=== PATIENT | female | born 1930 | race Caucasian/White ===

== ENCOUNTER 2017-05-02 11:21 | Inpatient (IN) | payer MEDICARE, OTHER ==
[2017-05-02] VITALS (7 sets, daily range): BP systolic 132–186; BP diastolic 49–76; PULSE 62–71; RESP 12–18; O2SAT 93–100
[~2017-05-02] VITALS: Ht 157.5 cm; Wt 62.2 kg
[~2017-05-02 11:21] MED LIST: ATEN25TA PO; ATOR20TA PO; FAMO20T PO; FLUO10TA PO; LEVO25TA5 PO; LORA0.5T PO; LOSA50TA37 PO; WARF2.5T82 PO; WARF5TAB PO
--- NOTE | 2017-05-02 11:42 | ED.REPORT ---
HPI-Extremity Problem Upper Date of Service May 02, 2017 ED Provider: Duke Sheldon MD 86 y/o female with a hx of CVA (2 years ago), HTN , paroxysmal A-fib (on Coumadin) and skin cancer presents to the ED complaining of left wrist pain and swelling, onset yesterday morning. The pt's states he found her yesterday morning leaning over the bed with her feet on the ground. He helped her to the dining table but she kept leaning to the left when in the chair. They also could not understand what she was trying to say. Today, the pt is not leaning one way but is experiencing generalized weakness. Therefore, still needs help standing up. Her speech has also reportedly improved. The pt states ""I don't think I get anything" when asked about her main complaint today. Her family states they came in today to address both her sx yesterday and the severe pain, swelling and erythema in the left wrist due to unknown cause. She denies change in appetite, myalgia, recent antibiotic use or taking a pain medication. The pt had a fall a couple of weeks ago but did not hurt her wrist then. Nursing Notes Stated Complaint: X-RAY Chief Complaint: Extremity Trauma Nursing Notes Reviewed: Yes (Impactia not reconciled) Allergies: Coded Allergies: codeine (Verified Allergy, Mild, nausea, 05/02/17) Scheduled Atenolol (Atenolol) 25 Mg Tablet 25 MG PO BID Atorvastatin (Lipitor) 20 Mg Tablet 20 MG PO HS Famotidine (Pepcid) 20 Mg Tablet 20 MG PO DAILY Fluoxetine (Fluoxetine) 10 Mg Tablet 10 MG PO DAILY Levothyroxine (Levothyroxine) 25 Mcg Tablet 25 MCG PO DAILY Losartan Potassium (Losartan Potassium) 50 Mg Tablet 50 MG PO BID Warfarin Sodium (Coumadin) 5 Mg Tablet 5 MG PO sat,sat,,sun Warfarin Sodium (Warfarin Sodium) 2.5 Mg Tablet 2.5 MG PO sat,,sat Scheduled PRN Lorazepam (Lorazepam) 0.5 Mg Tablet 0.5-1 MG PO HS PRN PRN For Anxiety or Agitation General Time Seen by MD: 11:41 Chief Complaint Wrist injury left Hx Obtained From: Patient, Spouse Arrived By: Walk-in Onset Occurred: Yesterday Symptom Duration: 1 day Location: : Arm left: Wrist left Quality: Painful Severity: Current: Severe Severity: Maximum: Severe Recent Healthcare: Recent doctor visit Similar Sx Previous: No Past Medical History Past Medical History 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 Recent small/mod pericardial effusion without evidence of tamponade Paroxysmal afib on coumadin back pain arthritis Mild cognitive impairment Reports: Hyperlipidemia, Hypertension Past Surgical History knee replacement back surgery Reports: Appendectomy, Hysterectomy Reports: Pacemaker insertion Smoking History Never Smoker Social History Alcohol Use: Denies alcohol use Drug Use: Denies drug use Other Social History: Ambulatory Status Independent Review of Systems Reports: Left wrist erythema Denies: change in appetite Musculoskeletal: Reports: Extremity pain (left arm), Joint pain (left wrist pain), Joint swelling (left wrist), Denies: Myalgia Neurologic: Reports: Focal weakness (left sided (now resolved)), Slurred speech (now resolved), Weakness Complete sys rev & neg: except as marked. Physical Exam Initial Vital Signs Vital Signs (First) Date Time Temp Pulse Resp B/P Pulse Ox O2 Delivery O2 Flow Rate FiO2 05/02/17 11:35 37.1 69 14 157/49 97 Room Air Initial VS: Reviewed Head / Eyes: Atraumatic, Normocephalic Neck: Supple, Non-tender, Full range of motion Lower Extremities: Vascular intact, Neuro intact, No swelling, No tenderness Skin: Warm, Dry, No cyanosis Neurologic: Alert, Oriented, Nonfocal General/Constitutional: Awake, Alert, No acute distress, Cooperative Pleasantly demented Respiratory / Chest: Atraumatic, Breath sounds NL, Breath sounds = bilat, No respiratory distress, No rales, No rhonchi, No wheezing, No retractions Cardiovascular: Heart rate NL, Regular rhythm, Heart sounds NL, No gallop, No murmurs, No rubs Upper Extremity / MS: Atraumatic, No swelling, No deformity, Neurologic intact , Vascular intact Wrist / Hand: Atraumatic, No deformity, Neurologic intact, Vascular intact No visible sign of trauma to left wrist but tender throughout. Decreased range of motion of left wrist and elbow. Skin: Atraumatic, Warm, Dry, Intact 15cm Clinical cellulitis of dorsum of laft hand and left forearm. No open wounds. Abdomen: Atraumatic, Soft, Non-tender Interpretation & Diagnostics Lab Results Interpretation Result Diagram: 05/02/17 1250 05/02/17 1250 Test 05/02/17 12:50 White Blood Count 12.1th/mm3 (3.8-10.1) Red Blood Count 5.10mil/mm3 (3.90-5.20) Hemoglobin 13.4g/dL (12.0-15.6) Hematocrit 42.0% (35.0-46.0) Mean Corpuscular Volume 82.4fL (81-100) Mean Corpuscular Hemoglobin 26.3pg (27.0-35.0) Mean Corpuscular Hemoglobin Concent 31.9% (32.0-37.0) Red Cell Distribution Width 16.0% (12.3-15.4) Platelet Count 345bil/L (150-400) Neutrophils (%) (Auto) 79.9% (40-74) Lymphocytes (%) (Auto) 6.7% (14-46) Monocytes (%) (Auto) 11.2% (4-12) Eosinophils (%) (Auto) 1.4% (0-5) Basophils (%) (Auto) 0.6% (0-3) Prothrombin Time 19.8sec (8.1-12.5) Prothromb Time International Ratio 1.83ratio Sodium Level 135mEq/L (134-144) Potassium Level 3.6mEq/L (3.5-5.2) Chloride Level 97mEq/L (97-108) Carbon Dioxide Level 24mmol/L (18-29) Blood Urea Nitrogen 17mg/dL (8-27) Creatinine 0.82mg/dL (0.57-1.00) Estimat Glomerular Filtration Rate 94mL/min (>59) Glucose Level 153mg/dL (60-99) Lactic Acid Level 2.1mmol/L (0.4-2.0) Calcium Level 10.9mg/dL (8.5-10.1) Total Bilirubin 0.7mg/dL (0.0-1.2) Aspartate Amino Transf (AST/SGOT) 17U/L (0-50) Alanine Aminotransferase (ALT/SGPT) 14U/L (0-32) Alkaline Phosphatase 85U/L (25-165) Total Protein 8.1g/dL (6.4-8.4) Albumin 4.0g/dL (3.4-5.0) Lab Results Interpretation: CBC positive leukocytosis CMP normal Lactic acid marginally elevated Blood cultures pending INR marginally subtherapeutic ECG Interpretation ECG Interpretation: Normal sinus rthyhm. Q waves inferiorly T wave non-specifc abdnormal inferiorly No interval changes compared with March 2015 Time: 12:19 Interpreted by: ED physician X-Ray Chest Interpretation Chest Xray Interpretation: IMPRESSION: No acute cardiopulmonary disease. Dictated by: Vj Eaton M.D. on 05/02/2017 at 12:08 Approved by: Vj Eaton M.D. on 05/02/2017 at 12:09 View: Portable, 1 view Interpretation / Wet Read by: Interpret - Radiologist X-Ray Interpretation Xray Interpretation: IMPRESSION: 1. No acute bony injuries of the left wrist. 2. Triangular fibrocartilage region chondrocalcinosis, consistent with CPPD deposition disease. 3. Mild first carpal metacarpal joint degeneration. Dictated by: Vj Eaton M.D. on 05/02/2017 at 12:03 Approved by: Vj Eaton M.D. on 05/02/2017 at 12:05 X-Ray Ordered: Wrist left Interpretation / Wet Read by: Interpret - Radiologist Xray Interpretation: IMPRESSION: 1. No acute bony injuries of the left elbow. 2. Scattered soft tissue calcification around the left elbow, possibly dystrophic from remote traumatic insult. Dictated by: Vj Eaton M.D. on 05/02/2017 at 12:06 Approved by: Vj Eaton M.D. on 05/02/2017 at 12:07 X-Ray Ordered: Elbow left CT Head Interpretation IMPRESSION: 1. No acute intracranial process. 2. Moderate to severe atrophy and chronic microvascular ischemic changes. Dictated by: Kay Velez M.D. on 05/02/2017 at 13:22 Approved by: Kay Velez M.D. on 05/02/2017 at 13:23 Study: Head CT no contrast Interpretation / Wet Read by: Interpret - Radiologist Re-Eval/Medical Decision Med Decision/Clinical Course This is an 86-year-old female with chronic severe dementia who is brought in with increasing redness swelling and pain in the dorsum of the left hand extending up the forearm that started yesterday. Additionally there is concern that the patient suffered a recent TIA/CVA as yesterday she had some expressive aphasia, and leaning to the left, and could not stand or dress herself which is unusual. Today she is also having weakness unable to stand or dresser self according the family, required assistance, was having no left-hand pain so was brought in. There is no known history of trauma except for fall a week ago with no known hand trauma. All history is obtained to use the family as the patient is severely demented and according them is back to baseline, except for this global weakness of the inability to stand. The patient does have some speech deficits that are mild, the family thinks her back at baseline. No overt focal motor weakness is identified on NIH stroke scale testing. The patient does have what appears to be marked cellulitis of the left hand and forearm. I do not appreciate clear signs of trauma. Accu-Chek was normal. Head CT was negative for clear acute pathology. EKG demonstrates currently sinus rhythm. Radiographs of the wrist and elbow were negative although clinically I am skeptical as as no signs of trauma, no signs of a septic joint. Patient's lab work is notable for leukocytosis, marginally elevated lactic acid. I think parenteral antibiotics are warranted it given this severity of the cellulitis, and started patient on Zosyn and vancomycin. A speech evaluation was performed. Given her age, leukocytosis, sizable cellulitis, recent stroke with difficulty ambulating that is new, the plan is admission. Family is planning to try and stay at bedside 24 hours to the patient's severity and try to help stabilize to manage her her dementia. Source of Hx: Old records Differential Diagnosis: Positive: Cellulitis, Negative: Deep vein thrombosis, Fracture, Hematoma, Humerus fracture, Joint effusion, Laceration, Metacarpal fracture, Open fracture, Partial amputation Counseled Regarding: Diagnosis, Lab results, Need for follow-up, When/why to return to ED NIH Stroke Scale Level of Consciousness: Alert and responsive (0) Ask Month & Age: 0 questions right (2) (family states it is baseline) Open/Close Eyes/Hand [employer] Press Operator: Performs both tasks (0) Horizontal EO Movements: None (0) Visual Maddox: No visual loss (0) Facial Palsy: Normal symmetry (0) Right Arm Motor Drift (10s): No drift 10 sec (0) Left Arm Motor Drift (10s): No drift 10 sec (0) (some weaknes, without drift. Acuity is unclear) Right Leg Motor Drift (5s): No drift 5 sec (0) Left Leg Motor Drift (5s): No drift 5 sec (0) Limb Ataxia FNF/Heel-Stevens: No ataxia (0) Sensation (Arms/Legs/Face): No sensory loss (0) Language Aphasia: Loss fluency ID matls (1) Dysarthria: Slurring intelligible (1) Extinction/Inattention: No exctinct/inattent (0) NIHSS Score: 2 Time NIHSS Performed: 11:50 Date NIHSS Performed: May 02, 2017 Discharge & Departure Impression: Primary Impression: Cellulitis Site of cellulitis: extremity Site of cellulitis of extremity: upper extremity Laterality: left Qualified Code: L03.114 - Cellulitis of left upper limb Additional Impressions: CVA (cerebral infarction) Subtherapeutic international normalized ratio (INR) Disposition: Home Discharge Condition All VS Reviewed: Yes Condition: Stable Referrals: Lianne Espinoza MD (PCP) Scribe Attestation Portions of this note were transcribed by Martha Harrell. I, , personally performed the history, physical exam and medical decision- making;I reviewed and confirmed the accuracy of the information in the transcribed note. Signed by Stuart Lyn. 05/02/17 13:28 copies to: Lianne Espinoza MD, Matthew F MD May 02, 2017 11:42 Martha Harrell May 02, 2017 11:59
[2017-05-02] MEDS ORDERED: Vancomycin Dose per Pharmacist XX ONE (12:05)
[2017-05-02] MEDS ORDERED: Piperacillin-Tazo 3.375 Gm Inj 3.375 GM in Dextrose 5% Minibag Plus 50 ML IV ONE (12:05)
[2017-05-02] MEDS ORDERED: Vancomycin Inj 1,000 MG in IV Premix 1 EACH IV ONE (12:35)
--- NOTE | 2017-05-02 12:39 | NUR ---
Evaluation completed. Please go to "Notes" then click on "Assessments and Notes" (bottom left corner of screen). Then select appropriate discipline tab on top of screen.
[2017-05-02 12:59] LABS: BASOPHILS % (AUTO) 0.6 % (0-3); EOSINOPHILS % (AUTO) 1.4 % (0-5); MONOCYTES % (AUTO) 11.2 % (4-12); Mean Corpuscular Hemoglobin 26.3 pg (27.0-35.0); Mean Corpuscular Volume 82.4 fL (81-100); NEUTROPHILS % (AUTO) 79.9 % (40-74); Platelet Count 345 bil/L (150-400)
--- NOTE | 2017-05-02 13:06 | DRSVH ---
PROCEDURE: X-RAY LEFT WRIST COMPLETE, MINIMUM THREE VIEWS ([id number]) INDICATIONS: 86 year-old female with left wrist redness and swelling. TECHNIQUE: 4 views of the wrist were acquired. COMPARISON: None. FINDINGS: Bones: No fractures or dislocations. There is mild first carpometacarpal joint degeneration. No waqar picious bony lesions. Scaphoid view: Scaphoid is intact. Soft tissues: There is extensive triangular fibrocartilage region chondrocalcinosis. IMPRESSION: 1. No acute bony injuries of the left wrist. 2. Triangular fibrocartilage region chondrocalcinosis, consistent with CPPD deposition disease. 3. Mild first carpal metacarpal joint degeneration. Dictated by: Vj Eaton M.D. on 05/02/2017 at 12:03 Approved by: Vj Eaton M.D. on 05/02/2017 at 12:05
--- NOTE | 2017-05-02 13:09 | DRSVH ---
PROCEDURE: X-RAY LEFT ELBOW, TWO VIEWS ([id number]) INDICATIONS: 86 year-old female with left elbow pain, without known injury. TECHNIQUE: 2 views of the elbow were acquired. COMPARISON: None. FINDINGS: Bones: No fractures or dislocations. No suspicious bony lesions. Soft tissues: No elbow joint effusion. There is soft tissue calcification projecting just anterior t o the proximal radius, as well as at the common extensor tendon origin. IMPRESSION: 1. No acute bony injuries of the left elbow. 2. Scattered soft tissue calcification around the left elbow, possibly dystrophic from remote traumat ic insult. Dictated by: Vj Eaton M.D. on 05/02/2017 at 12:06 Approved by: Vj Eaton M.D. on 05/02/2017 at 12:07
--- NOTE | 2017-05-02 13:11 | DRSVH ---
PROCEDURE: X-RAY CHEST ONE VIEW, PORTABLE ([id number]) INDICATIONS: 86 year-old female with possible stroke. TECHNIQUE: One view of the chest was acquired. COMPARISON: [facility], CR, XR CHEST 2VW, 05/28/2016, 10:55. [facility], C R, XR CHEST 2VW, 12/19/2015, 14:31. [facility], CR, CHEST 2VW, 03/25/2015, 12:21. FINDINGS: Surgical changes and devices: Left chest wall dual chamber pacemaker is again noted. Lungs and pleura: No pleural effusions or pneumothorax. Lungs are clear. Mediastinum: Mediastinal contours appear normal. Heart size is normal. There is aortic atheroscler osis. Bones and chest wall: No suspicious bony lesions. Overlying soft tissues appear unremarkable. IMPRESSION: No acute cardiopulmonary disease. Dictated by: Vj Eaton M.D. on 05/02/2017 at 12:08 Approved by: Vj Eaton M.D. on 05/02/2017 at 12:09
[2017-05-02 13:14] LABS: INR 1.83 ratio
--- NOTE | 2017-05-02 13:25 | DRSVH ---
PROCEDURE: CT BRAIN WITHOUT CONTRAST ([id number]) INDICATIONS: L weakness, on coumadin TECHNIQUE: Noncontrast 4.5 mm thick angled axial sections acquired from the foramen magnum to the vertex, with c oronal reformats. COMPARISON: [facility], CT, CT BRAIN WO CON, 03/03/2016, 8:55. FINDINGS: Image quality: Excellent. CSF spaces: Basal cisterns are patent. No extra-axial fluid collections. The ventricles are symmet varun in size and shape. Brain: No intracranial bleeds. There is cerebral volume loss for age, with resultant ventricular an d sulcal prominence. There are periventricular and deep white matter chronic small vessel ischemic c hanges. There is intracranial internal carotid artery atherosclerosis. There is an unchanged left f rontal extra-axial calcified mass most suggestive of meningioma. Skull and face: Calvarium and visualized facial bones appear intact, without suspicious lesions. Sinuses: Visualized sinuses and mastoids are clear. IMPRESSION: 1. No acute intracranial process. 2. Moderate to severe atrophy and chronic microvascular ischemic changes. Dictated by: Kay Velez M.D. on 05/02/2017 at 13:22 Approved by: Kay Velez M.D. on 05/02/2017 at 13:23
[2017-05-02 14:28] LABS: APPEARANCE,URINE HAZY (CLEAR,HAZY); COLOR,URINE YELLOW (YELLOW)
[2017-05-02 14:29] LABS: OCCULT BLOOD,URINE MODERATE (NEGATIVE); UROBILINOGEN,URINE NORMAL (NORMAL)
--- NOTE | 2017-05-02 17:50 | NUR ---
Admit [facility] rm [id number] from ED Alert, yet confused pt arrived [facility] at 1510. Pt denied having pain, yet winced when L hand was touched. Area over L wrist/hand noted to be reddened, boundaries outlined in ED. Daughters at bedside state the redness has improved since this AM. L arm remains elevated on a pillow, pt states it's more comfortable. Family states pt was dx with dementia 1.5 years ago and noted to have worsening short term memory has been independent at home until yesterday when she fell and needed help up. Pt was receiving IV Vanco but this RN stopped infusion at 1530 d/t the local area getting more red. Discoloration has completely resolved since. Pt oriented to room and facility. Denies having questions. Pt placed on tele, A/V paced 74. Daughters state pt lives at home with . Will continue to monitor.
[2017-05-02] MEDS ORDERED: Alum-Mag Hydrox-Simeth 30 mL Suspension PO PRN (18:15)
[2017-05-02] MEDS ORDERED: Polyethylene Glycol (PEG) 17 Gm Powder PO PRN (18:15)
[2017-05-02] MEDS ORDERED: Ondansetron 2 mg/mL 2 mL Inj IVPUSH PRN (18:15)
[2017-05-02] MEDS ORDERED: 0.9% Sodium Chloride 1,000 ML IV ONE (18:30)
--- NOTE | 2017-05-02 18:31 | PCM.HPMED ---
Subjective Date of Service May 02, 2017 Primary Provider: Admitting Physician: Jonathan Colin Primary Care Physician: Lianne Espinoza MD Attending Physician: Jonathan Colin Chief Complaint: left hand and wrist pain/swelling History of Present Illness: 86 year-old female with history of advanced dementia since CVA episode in 2014, hypertension, paroxysmal A-fib (on Coumadin) presents with complaint of left wrist and left hand pain and swelling, onset yesterday morning. Patient has advanced demential and unable to provide any meaningful history. According to her daughter and grand-daughter who are at bedside yesterday patient was noted to be leaning to the left when trying to walk or when in the chair. She may also have had some transient slurring of her speech yesterday. Today, the pt is not leaning one way and her speech has also reportedly improved. The family brought her in today to address both her symptoms yesterday and the severe pain , swelling and erythema in the left wrist due to unknown cause. Patient does report some pain in her left wrist but otherwise denies any other issues/complaints. There is no reported fever, chills, nausea, vomiting. In the ED she received a dose of Zosyn. Vanco was also ordered but she was noted to have significant erythema at the IV site when Vanco was being infused and so it has been stopped. Review of Systems: Constitutional: Negative, except as otherwise mentioned in the history above. Ophthalmologic: Negative, except as otherwise mentioned in the history above. Cardiovascular: Negative, except as otherwise mentioned in the history above. Respiratory: Negative, except as otherwise mentioned in the history above. Gastrointestinal: Negative, except as otherwise mentioned in the history above. Genitourinary: Negative, except as otherwise mentioned in the history above. Musculoskeletal: Negative, except as otherwise mentioned in the history above. Neurological: Negative, except as otherwise mentioned in the history above. Psychiatric: Negative, except as otherwise mentioned in the history above. Hematologic/Lymphatic: Negative, except as otherwise mentioned in the history above. Allergic/Immunologic: Negative, except as otherwise mentioned in the history above. Allergies Coded Allergies: codeine (Verified Allergy, Mild, nausea, 05/02/17) Home Medications Atenolol (Atenolol) 25 Mg Tablet 25 MG PO BID Atorvastatin (Lipitor) 20 Mg Tablet 20 MG PO HS Famotidine (Pepcid) 20 Mg Tablet 20 MG PO DAILY Fluoxetine (Fluoxetine) 10 Mg Tablet 10 MG PO DAILY Levothyroxine (Levothyroxine) 25 Mcg Tablet 25 MCG PO DAILY Losartan Potassium (Losartan Potassium) 50 Mg Tablet 50 MG PO BID Warfarin Sodium (Coumadin) 5 Mg Tablet 5 MG PO mon,sat,fr,sun Warfarin Sodium (Warfarin Sodium) 2.5 Mg Tablet 2.5 MG PO e,,sat Scheduled PRN Lorazepam (Lorazepam) 0.5 Mg Tablet 0.5-1 MG PO HS PRN PRN For Anxiety or Agitation PMH Bradycardia post pacemaker placement CVA 12/2014 Syncope due to intermittent complete heart block s/p dual chamber Paroxysmal A-fib on Coumadin Back pain Arthritis Advanced dementia Hyperlipidemia Hypertension Monoclonal gammopathy of uncertain significance (MGUS) Surgical History Knee replacement Back surgery Appendectomy, Hysterectomy Pacemaker insertion Family History No family history of CAD Social History Hx Alcohol Use: No Hx Substance Use: No Hx Tobacco Use: No Smoking Status: Never Smoker Exam Vital Signs Vital Sign - Last Date Time Temp Pulse Resp B/P Pulse Ox O2 Delivery O2 Flow Rate FiO2 05/02/17 17:34 70 05/02/17 16:46 36.8 18 133/67 94 Room Air General: Alert, Cooperative, No Acute Distress, Other (disoriented x 3) Head: Normal Eyes: PERRLA, EOMI, Scleral Anicteric Nose: Mucous Membr Moist/Millen Mouth: Mucous Membr Moist/Millen Neck: Supple Chest & Lungs: Chest Wall Normal, Clear to auscultation & percussion Cardiovascular: Regular Rate/Rhythm Pulses: NL carotid, radial, femoral, DP, PT Abdomen: Non-tender, Non-distended, Normoactive bowel tones, Soft Extremities: No cyanosis/clubbing/edma bilat Skin: Other (erythema and swelling of the back of left hand extending to left wrist. There is also mild-moderate swelling of left hand with decreased range of motion due to pain) Neurological: Grossly Neurologically Intact, Normal Speech, Strength Normal 4/ 4 ext Lymphatic: Other Lymph Nodes (no significant lymphadenopathy) Lab and Diagnostics Result Diagram: 05/02/17 1250 05/02/17 1250 X-Rays, CTs and MRIs Date of Service: 05/02/17 1157 PROCEDURE: X-RAY LEFT WRIST COMPLETE, MINIMUM THREE VIEWS ([id number]) IMPRESSION: 1. No acute bony injuries of the left wrist. 2. Triangular fibrocartilage region chondrocalcinosis, consistent with CPPD deposition disease. 3. Mild first carpal metacarpal joint degeneration. Dictated by: Vj Eaton M.D. on 05/02/2017 at 12:03 Approved by: Vj Eaton M.D. on 05/02/2017 at 12:05 Date of Service: 05/02/17 1157 PROCEDURE: X-RAY LEFT ELBOW, TWO VIEWS ([id number]) IMPRESSION: 1. No acute bony injuries of the left elbow. 2. Scattered soft tissue calcification around the left elbow, possibly dystrophic from remote traumatic insult. Dictated by: Vj Eaton M.D. on 05/02/2017 at 12:06 Approved by: Vj Eaton M.D. on 05/02/2017 at 12:07 Date of Service: 05/02/17 1157 PROCEDURE: X-RAY CHEST ONE VIEW, PORTABLE ([id number]) IMPRESSION: No acute cardiopulmonary disease. Dictated by: Vj Eaton M.D. on 05/02/2017 at 12:08 Approved by: Vj Eaton M.D. on 05/02/2017 at 12:09 Date of Service: 05/02/17 1157 PROCEDURE: CT BRAIN WITHOUT CONTRAST ([id number]) IMPRESSION: 1. No acute intracranial process. 2. Moderate to severe atrophy and chronic microvascular ischemic changes. Dictated by: Kay Velez M.D. on 05/02/2017 at 13:22 Approved by: Kay Velez M.D. on 05/02/2017 at 13:23 Assessment & Plan 86 year-old female with history of advanced dementia since CVA episode in 2014, hypertension, paroxysmal A-fib (on Coumadin) presents with complaint of left wrist and left hand pain and swelling. # Acute left wrist/hand cellulitis. Present on admission - Other differential includes possible acute gout or pseudogout - Continue with IV Zosyn - No reason to believe this is MRSA and will not continue Vancomycin which she seems to have had a reaction to earlier - Followup repeat labs in am - Check procalcitonin - MRSA screen - Consider ID consult if not improving by tomorrow - Supportive care - Keep left hand/arm elevated as much as possible # Transient neurologic symptoms one day prior to presentation - Currently neuro exam non-focal - Followup on Tele - Consider echo pending further clarification of goals of care - Continue with home dose Lipitor - Start baby ASA until INR therapeutic - Unable to obtain MRI due to pacemaker in place - PT/OT eval # History of Paroxysmal A-fib. Currently in sinus rhythm - Continue with home dose Atenolol # Chronic anticoagulation with Coumadin with INR subtherapeutic on admission. - Continue with Warfarin (dose per Pharmacy) - Followup daily INR # History of hypertension. Stable - Continue with home dose Losartan # Hypothyroidism - Continue with home dose Synthroid # History of MGUS. - Appears stable - Further followup as outpatient # Mildly elevated lactic acid, acute and present on admission - Followup after IV hydration over night # Hypercalcemia. Chronic and stable - Followup Expected length of hospital stay is greater than 2 midnights and likely 2-3 days GI Prophylaxis: Proton Pump Inhibitor VTE Prophylaxis: Sub-Q Heparin (Unfractionated) Resuscitation Status: Limited Interventions (OK to resuscitate but do NOT INTUBATE. Discussed and verified with her (DPOA)) Time spent 60 min Jonathan Colin May 02, 2017 18:30
[2017-05-02] MEDS: LORazepam 0.5 mg Tablet PO PRN (21:37)
[2017-05-02] MEDS: Piperacillin-Tazo 3.375 Gm Inj 3.375 GM in Dextrose 5% Minibag Plus 50 ML IV SCH (21:38)
[2017-05-03] VITALS (7 sets, daily range): BP systolic 127–202; BP diastolic 67–87; PULSE 60–71; RESP 16–19; O2SAT 94–99
[2017-05-03] MEDS: Heparin 5,000 Unit/mL Inj SUBQ SCH ×2 (01:05→08:32)
--- NOTE | 2017-05-03 07:19 | NUR ---
Lab refusal Pt refused AM labs today, day shift RN aware. Care ongoing.
[2017-05-03 08:02] LABS: BASOPHILS % (AUTO) 0.9 % (0-3); EOSINOPHILS % (AUTO) 7.4 % (0-5); MONOCYTES % (AUTO) 11.8 % (4-12); Mean Corpuscular Hemoglobin 26.3 pg (27.0-35.0); NEUTROPHILS % (AUTO) 66.3 % (40-74); Platelet Count 287 bil/L (150-400)
[2017-05-03 08:21] LABS: INR 2.2 ratio
[2017-05-03 08:27] LABS: Magnesium 1.9 mg/dL (1.6-2.6)
[2017-05-03] MEDS: Piperacillin-Tazo 3.375 Gm Inj 3.375 GM in Dextrose 5% Minibag Plus 50 ML IV SCH (08:29)
--- NOTE | 2017-05-03 10:53 | PCM.PHAPRO ---
Progress Date of Service: May 03, 2017 warfarin dosing INR = 2.20, hct=42, ropd=141 Pt continues on warfarin therapy for afib. INR today is therapeutic today. Will give another dose of 2.5 mg warfarin tonight. INRs are ordered. Pharmacy will follow this pt's warfarin therapy. Date May 03-Apr INR 1.83 2.20 INR change 0.37 Warf Dose 2.5mg 2.5mg Rona Callahan PharmD May 03, 2017 10:52
--- NOTE | 2017-05-03 14:21 | NUR ---
patient was incontinent of stool and urine and did total bed changed @11:20 am did sponge bath, family was there and helping
[2017-05-03] MEDS ORDERED: CeFAZolin 2 Gm/50 mL D5W Duplex Bag IV SCH (16:50)
[2017-05-03] MEDS ORDERED: CeFAZolin 1,000 mg Inj IM ONE (16:50)
--- NOTE | 2017-05-03 17:27 | PCM.PNMED ---
Subjective Date of Service May 03, 2017 Subjective Denies any new issues/complaints Exam Vital Signs Vital Sign - Last Date Time Temp Pulse Resp B/P Pulse Ox O2 Delivery O2 Flow Rate FiO2 05/03/17 12:35 36.6 71 18 136/67 98 Room Air Intake and Output 05/02/17 05/02/17 05/03/17 Cumulative From/Thru 15:00 23:00 07:00 05/02/17 11:35 - 05/03/17 06:07 Intake Total 644 ml 644 ml Output Total 200 ml 200 ml Balance -200 ml 644 ml 444 ml Intake IV Total 644 ml 644 ml Output Urine Total 200 ml 200 ml # Voids 1 1 Exam General: Alert, Cooperative, No Acute Distress, Other (disoriented x 3) Head: Normal Eyes: Scleral Anicteric Nose: Mucous Membr Moist/[place] Mouth: Mucous Membr Moist/[place] Neck: Supple Chest & Lungs: Chest Wall Normal, Clear to auscultation bilat Cardiovascular: Regular Rate/Rhythm Abdomen: Non-tender, Non-distended, Normoactive bowel tones, Soft Extremities: No cyanosis/clubbing/edema bilat Skin: Other (erythema and swelling of the back of left hand extending to left wrist. There is also mild-moderate swelling of left hand with decreased range of motion due to pain) Neurological: Grossly Neurologically Intact, Normal Speech, Strength Normal 4/ 4 ext IVs and Medications Medications Reviewed: Medications were reviewed in detail Lab and Diagnostics Result Diagram: 05/03/17 0755 05/03/17 0755 X-Rays, CTs and MRIs Date of Service: 05/02/17 1157 PROCEDURE: X-RAY LEFT WRIST COMPLETE, MINIMUM THREE VIEWS ([id number]) IMPRESSION: 1. No acute bony injuries of the left wrist. 2. Triangular fibrocartilage region chondrocalcinosis, consistent with CPPD deposition disease. 3. Mild first carpal metacarpal joint degeneration. Dictated by: Vj Eaton M.D. on 05/02/2017 at 12:03 Approved by: Vj Eaton M.D. on 05/02/2017 at 12:05 Date of Service: 05/02/17 1157 PROCEDURE: X-RAY LEFT ELBOW, TWO VIEWS ([id number]) IMPRESSION: 1. No acute bony injuries of the left elbow. 2. Scattered soft tissue calcification around the left elbow, possibly dystrophic from remote traumatic insult. Dictated by: Vj Eaton M.D. on 05/02/2017 at 12:06 Approved by: Vj Eaton M.D. on 05/02/2017 at 12:07 Date of Service: 05/02/17 1157 PROCEDURE: X-RAY CHEST ONE VIEW, PORTABLE ([id number]) IMPRESSION: No acute cardiopulmonary disease. Dictated by: Vj Eaton M.D. on 05/02/2017 at 12:08 Approved by: Vj Eaton M.D. on 05/02/2017 at 12:09 Date of Service: 05/02/17 1157 PROCEDURE: CT BRAIN WITHOUT CONTRAST ([id number]) IMPRESSION: 1. No acute intracranial process. 2. Moderate to severe atrophy and chronic microvascular ischemic changes. Dictated by: Kay Velez M.D. on 05/02/2017 at 13:22 Approved by: Kay Velez M.D. on 05/02/2017 at 13:23 Assessment & Plan 86 year-old female with history of advanced dementia since CVA episode in 2014, hypertension, paroxysmal A-fib (on Coumadin) presents with complaint of left wrist and left hand pain and swelling. # Acute left wrist/hand cellulitis. Present on admission - Other differential includes possible acute gout or pseudogout (although uric acid level is low) - Continue with IV Zosyn - ID consulted. Will followup with recs - Supportive care - Keep left hand/arm elevated as much as possible # Transient neurologic symptoms one day prior to presentation - Currently neuro exam non-focal - Followup on Tele - Continue with home dose Lipitor - Stop baby ASA now that INR therapeutic - Unable to obtain MRI due to pacemaker in place - PT/OT eval # History of Paroxysmal A-fib. Currently in sinus rhythm - Continue with home dose Atenolol # Chronic anticoagulation with Coumadin with INR subtherapeutic on admission. - Continue with Warfarin (dose per Pharmacy) - Followup daily INR # History of hypertension. Stable - Continue with home dose Losartan # Hypothyroidism - Continue with home dose Synthroid # History of MGUS. - Appears stable - Further followup as outpatient # Mildly elevated lactic acid, acute and present on admission - Followup after IV hydration over night # Hypercalcemia. Chronic and stable - Followup Dispo: 1-2 days GI Prophylaxis: Proton Pump Inhibitor VTE Prophylaxis: Sub-Q Heparin (Unfractionated) VTE Mechanical Devices: Intermittant Pneumatic CD Resuscitation Status: Limited Interventions (OK to resuscitate but do NOT INTUBATE. Discussed and verified with her (DPOA)) Jonathan Colin May 03, 2017 17:27
--- NOTE | 2017-05-03 17:40 | CONS ---
[address] [address] CONSULTATION REPORT PATIENT: JAVAN DICKEY : 1930 MR#: [id number] ADMIT: 05/02/2017 JOB ID: [id number] DATE OF SERVICE: 05/03/2017 INFECTIOUS DISEASE CONSULTATION: I thank Dr. Colin for this timely consult. REASON FOR CONSULTATION: Severe left wrist and dorsal hand inflammation in an 86-year-old woman with underlying dementia. HISTORY OF PRESENT ILLNESS: The patient is an 86-year-old woman who is reasonably functional and lives at home with her in the local area. She has underlying complete heart block and has a pacer in place. She also has hypertension and dementia. A couple of years ago she had a stroke but recovered almost completely following that event. The patient has advanced dementia and is able to provide little in the way of history. She told her and daughter that she had a painful left wrist and apparently this started on about April 30, or three or four days ago. There was swelling and tenderness in the wrist and beyond that not much history available. The patient also may have been a little bit confused and the family was concerned she might be having a stroke so she was brought to the emergency department and evaluated. There were not any stroke-like findings but the patient's left wrist and dorsal hand were quite tender and the patient had a lot of pain with attempted movement around those joints and for that reason she was admitted for evaluation. The patient says she has no fevers, chills, or sweats, but she is very demented and it is absolutely hard to know if this history is in any way accurate. 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 b. Paroxysmal AFIB on Coumadin. 2. Arthritis and back pain. 3. Advanced dementia. 4. Hyperlipidemia. 5. Hypertension. 6. Monoclonal gammopathy of unknown significance. 7. Status post knee replacement surgery. SOCIAL HISTORY: The patient lives with her . She is a nonsmoker, nondrinker. She has numerous children involved in her care. FAMILY HISTORY: Unknown, as we cannot ask the patient at this point. REVIEW OF SYSTEMS: Is unreliable as the patient is quite demented. She states she has no fevers or chills, but she has no real ability to offer any additional details and no insight. PHYSICAL EXAMINATION: Reveals an afebrile woman who is comfortable, lying in bed. Temp 36.6. She has been afebrile since her admission a days and a half ago. Temp 36.6, pulse 71, respiratory rate 18, blood pressure 136/67, saturating well on room air. No acute distress. She is basically capable of speech but quite demented. Oriented x1. Absolutely no other information is available. No evidence of head trauma. Eyes without conjunctivitis. Oral cavity without thrush or hairy leukoplakia. Neck without masses. Lungs relatively clear. Cardiac tones are regular rate and rhythm. The pacer is palpable in the left upper chest and seems uninfected. Abdomen soft and nontender. Slightly distended. No organomegaly or masses. She has no [place] catheter. She is able to stand, as we saw her stand at the bedside with the help of the nurses. She does not have focal neuro findings now, but it is difficult to do an exam as the patient is not cooperative, but she is able to stand and lean on the bed and so forth. No significant peripheral edema. No evidence of skin breakdown in the feet or the heels. No evidence of synovitis except perhaps with the left upper extremity. The patient's left upper extremity is quite abnormal between about the mid forearm on the left and extending all the way onto the dorsum of the left hand and involving all the MCP joints there is a diffuse, rather boggy, slightly warm, slightly tender hyperemia. The patient has boggy synovium along the MCP joints. Her wrist seems mildly swollen and there is reduced range of motion with her wrist in all directions as the patient has a great deal of pain even with passive manipulation of the wrist. Her elbow appears to be completely uninvolved with this process that is going on in her wrist and forearm, but she cannot bend around the elbow very much without a great deal of pain, even though it does not look inflamed. She does not have any axillary adenopathy on the left nor any epitrochlear adenopathy. LABORATORIES: Include white count of 12,000 yesterday, now 7000. Diff was abnormal yesterday with 80% segs. Today it is basically normal except for 7% eos. Creatinine 0.66. LFTs normal. Procalcitonin 0.33. White cells 0-5. Blood cultures negative. Urine is insufficient growth at this point. It has been reincubated but I do not think it means anything as she has no white cells. IMAGING: Of the wrist shows some triangular fibrocartilage region chondrocalcinosis consistent with calcium pyrophosphate deposition. An examination of the elbow shows no acute abnormalities. IMPRESSION: I think what is going on in the patient's left wrist and forearm is either gout, pseudogout, or an infection. It is also possible it could be one of the crystal diseases plus an infection. At this point I would lean towards a crystalline deposition disease as the patient's seems to recall that she had gout a few years ago, though he is not absolutely certain, and the x-ray is consistent with calcium pyrophosphate deposition. Nonetheless, we must be concerned and vigilant for the possibility of cellulitis or even a septic arthritis of the wrist. RECOMMENDATIONS: 1. I would change the Zosyn to Ancef as a good option for staph and strep infection. 2. We will order a MRSA swab of the nares. If this were to be positive we would need to add a drug with coverage for MRSA, which could be vancomycin, daptomycin, or ceftaroline. I would lean towards the use of daptomycin just to avoid toxicity in this elderly woman and then we could actually stop the Ancef course. 3. In addition to the MRSA screen of the nares, I would order an ASO titer as well as a uric acid level. 4. Will order a repeat procalcitonin for tomorrow morning as today's was sort of equivocal at 0.3. 5. I would consult our orthopedic colleagues to assist in this case as I think she may require a tap of the wrist perhaps to exclude the possibility of crystalline disease and also to make sure there is no septic arthritis there. We have placed a consult to Dr. Sen Pardo of Orthopedics. Thank you very much.
--- NOTE | 2017-05-03 18:21 | NUR ---
High BP Patient had a elevated BP of 202/82 at 1740. notified.
[2017-05-03] MEDS: CeFAZolin Inj 2 GM in IV Premix 1 EACH IV SCH (19:43)
[2017-05-03] MEDS: LORazepam 0.5 mg Tablet PO PRN (19:50)
[2017-05-04] VITALS (9 sets, daily range): BP systolic 163–204; BP diastolic 75–91; PULSE 61–72; RESP 18; O2SAT 95–97
[2017-05-04] MEDS: CeFAZolin Inj 2 GM in IV Premix 1 EACH IV SCH ×3 (03:38→18:26)
--- NOTE | 2017-05-04 03:55 | NUR ---
Agitation Pt steadily became more agitated at beginning of shift. Family at bed side was worried about Pt and so PO lorazepam was given with little effect. Pt would not hold still in bed and kept scooting down in bed Pt became quite agitated with rikki care and was physically aggressive with staff. [employer] bambi was called in and shortly after she arrived Pt went to sleep. Pt has been asleep for a few hours and sitter was sent home. Pt woke briefly nehal this RN hung antibiotic but went back to sleep shortly after.
[2017-05-04 04:24] LABS: INR 2.32 ratio
--- NOTE | 2017-05-04 07:37 | PCM.PHAPRO ---
Progress warfarin dosing 15-Jesse 16-Jesse 17-Jesse 1.83 2.20 2.32 0.37 0.12 2.5mg 2.5mg 2.5 Hector Bain Pharm.D May 04, 2017 07:37
--- NOTE | 2017-05-04 11:12 | NUR ---
Social Work-initial assessment: Data:See initial assessment. Pt is a 86 y/o female who was admitted on 05/02/17 for cellulitis per H&P. Pt's insurance is [employer] and PCP is Lianne Espinoza MD. EMR reviewed. Pt's readmission score is 3-high risk. AILIN met with pt and Aamir at bedside, SW role explained. Pt resides at home with her who provides 24/7 care. Pt uses a fww and does not drive. has a private pay caregiver that comes in one day a week to assist. Pt has no HH or SNF history. Pt has no skilled nursing care or VA benefits. SW discussed DPOA/ advanced directive, pt's confirms they are working on this, SW encouraged a copy to be brought in. Per RN notes, pt is a 1-2 person assist, pt may require PT evaluation prior to discharge. SW provided phone number on white board in room. to provide transport home. SW will continue to follow. Assessment:Pt who has 24/7 care at home. Plan:Pt to likely discharge home when medically stable.Per RN notes, pt is a 1-2 person assist, pt may require PT evaluation prior to discharge. SW will continue to follow. NOA Dempsey Addendum: 05/04/17 at 1115 by PARESH GRAHAM SS Amended: Links added.
--- NOTE | 2017-05-04 12:41 | PROG NOTE ---
[address] [address] PROGRESS NOTE PATIENT: JAVAN DICKEY : 1930 MR#: [id number] ADMIT: 05/02/2017 JOB ID: [id number] DATE: 05/04/2017 INFECTIOUS DISEASE FOLLOW UP NOTE: REASON FOR FOLLOWUP: Left hand and wrist swelling. INTERVAL HISTORY: Overnight, the patient and her daughter who is with her in the room report that she is somewhat better. Recall that the patient has some underlying dementia. The patient, however, is able to express herself. Says she has no fevers, no chills. No shortness of breath. No abdominal pain. She notes that her left hand and wrist still hurt but it is getting gradually better. PHYSICAL EXAMINATION: Reveals an afebrile woman. Temperature 36.7, pulse 61, respiratory rate 18, blood pressure 163/79. She is saturating well on room air. Examination of the lungs reveals that they are clear. Cardiac tones without murmur. Abdomen negative. Left wrist and proximal dorsal hand continues to be swollen but less warm and less swollen than yesterday. She has increasing cabin crew strength whereas yesterday she really could not even make a fist. She also has a little more range of motion of the wrist. There is some minimal tenderness which I believe is due to an epitrochlear node around the elbow and this supports the diagnosis of probable soft tissue infection. No skin rashes noted. LABORATORIES: Include white count 7800. Recall that when she came in on the it was 12,000. Uric acid is 1.8 which argues strongly against gout. Procalcitonin 0.3 yesterday, 0.2 today. ASO titer, we had ordered is pending. Blood cultures are negative. A MRSA screen is pending. IMPRESSION: This elderly woman with unusual process involving her left wrist, dorsal hand and distal forearm. Gout seems to have been excluded by the very low uric acid, so I suspect this is either pseudogout, an infection or a combination. Her seeming response to antibiotics would argue, of course, in favor of infection as would her minimal epitrochlear tenderness. RECOMMENDATIONS: 1. Will continue with Ancef. 2. We await the MRSA PCR. 3. We await the ASO titer. 4. Will continue to follow this patient, and as mentioned yesterday, I might have ortho take a look, but I am convinced today the patient is getting better from whatever this is and hopefully can be transitioned to the outpatient setting in a couple days.
--- NOTE | 2017-05-04 13:24 | CONS ---
[address] [address] CONSULTATION REPORT PATIENT: JAVAN DICKEY : 1930 MR#: [id number] ADMIT: 05/02/2017 JOB ID: [id number] DATE OF SERVICE: 05/04/2017 CHIEF COMPLAINT: Left wrist pain and swelling. HISTORY OF PRESENT ILLNESS: The patient is an 86-year-old female who states that she began having warmth, pain and swelling in her left wrist about four days ago. She denies any antecedent trauma and states that she has not had an episode like this in the past although she states that she has had gout in the past. It became quite swollen and tender. She initially went to the clinic and then was referred to the emergency department and admitted to the hospital. We were consulted regarding possible aspiration of the wrist. PAST MEDICAL HISTORY: Significant for hypertension, depression, anxiety, pacemaker, stroke and some difficulty with memory. PAST SURGICAL HISTORY: Includes pacemaker. MEDICATIONS: Coumadin. ALLERGIES: 1. CODEINE. 2. VANCOMYCIN. PHYSICAL EXAMINATION: Blood pressure 163/79, pulse rate 61, respirations 18, temperature 36.7. She is alert and cooperative, resting in bed with her . Her left wrist has some swelling and warmth over the dorsal aspect but they both state that this is much improved. She is able to flex and extend her fingers but her third finger in particular is quite stiff with only about 50% of normal flexion. Her wrist has 20 degrees of dorsiflexion, 20 degrees of volar flexion. I do not appreciate a significant wrist effusion and her swelling seems to be more diffuse and within the subcutaneous tissues with some boggy type swelling from the MCP joint into the forearm. She has not have significant swelling over the volar aspect. I do not appreciate any erythema at this time. No lymphangitis. Her left elbow has some pain and stiffness and her shoulder has some diminished range of motion as well with active assist forward flexion to about 140 degrees. X-rays of her wrist demonstrate significant degenerative changes at the first MC joint as well as some chondrocalcinosis evidence at the distal ulna. LABORATORY EVALUATION: White blood cell count 7.8, down from a high of 12.1 on May 02. Uric acid low at 1.8. ASSESSMENT: Left hand cellulitis versus gouty flare/pseudogout flare. PLAN: I do not appreciate a significant wrist effusion and I offered to do a wrist aspiration but I did feel that it was unlikely that we would get significant fluid back and the patient feels that she is improving and would prefer to hold off. I recommend continued medical management for this and do not see evidence of a septic wrist arthritis. Feel free to reconsult us should her condition change or if you would like us to reconsider wrist aspiration.
--- NOTE | 2017-05-04 16:17 | NUR ---
Daily update Patient is alert and forgetful. Patient has been cooperative with care today. Patient left hand remains swollen. Patient denied pain in general, but at times mentioned her hand hurt when touched. Patient was unable to rate pain and then would deny pain when asked again about it. Patient continues to be administered IV antibiotics for cellulites. Patient up to bedside chair with 1 person assist. Patient family has been in room most of day with patient. [place] alarm on for safety.
--- NOTE | 2017-05-04 16:51 | PCM.PNMED ---
Subjective Date of Service May 04, 2017 Subjective Denies any new issues/complaints Exam Vital Signs Vital Sign - Last Date Time Temp Pulse Resp B/P Pulse Ox O2 Delivery O2 Flow Rate FiO2 05/04/17 16:12 66 05/04/17 13:08 36.4 18 179/75 97 Room Air Intake and Output 05/03/17 05/03/17 05/04/17 Cumulative From/Thru 15:00 23:00 07:00 05/02/17 11:35 - 05/04/17 05:17 Intake Total 770 ml 200 ml 1614 ml Output Total 100 ml 300 ml Balance 670 ml 200 ml 1314 ml Intake Oral 770 ml 200 ml 970 ml IV Total 644 ml Output Urine Total 100 ml 300 ml # Voids 2 3 6 Exam General: Alert, Cooperative, No Acute Distress, Other (disoriented x 3) Head: Normal Eyes: Scleral Anicteric Nose: Mucous Membr Moist/[place] Mouth: Mucous Membr Moist/[place] Neck: Supple Chest & Lungs: Chest Wall Normal, Clear to auscultation bilat Cardiovascular: Regular Rate/Rhythm Abdomen: Non-tender, Non-distended, Normoactive bowel tones, Soft Extremities: No cyanosis/clubbing/edema bilat Skin: Other (erythema and swelling of the back of left hand and wrist improving ) Neurological: Grossly Neurologically Intact, Normal Speech, Strength Normal 4/ 4 ext IVs and Medications Medications Reviewed: Medications were reviewed in detail Lab and Diagnostics Result Diagram: 05/03/17 0755 05/03/17 0755 X-Rays, CTs and MRIs Date of Service: 05/02/17 1157 PROCEDURE: X-RAY LEFT WRIST COMPLETE, MINIMUM THREE VIEWS ([id number]) IMPRESSION: 1. No acute bony injuries of the left wrist. 2. Triangular fibrocartilage region chondrocalcinosis, consistent with CPPD deposition disease. 3. Mild first carpal metacarpal joint degeneration. Dictated by: Vj Eaton M.D. on 05/02/2017 at 12:03 Approved by: Vj Eaton M.D. on 05/02/2017 at 12:05 Date of Service: 05/02/17 1157 PROCEDURE: X-RAY LEFT ELBOW, TWO VIEWS ([id number]) IMPRESSION: 1. No acute bony injuries of the left elbow. 2. Scattered soft tissue calcification around the left elbow, possibly dystrophic from remote traumatic insult. Dictated by: Vj Eaton M.D. on 05/02/2017 at 12:06 Approved by: Vj Eaton M.D. on 05/02/2017 at 12:07 Date of Service: 05/02/17 1157 PROCEDURE: X-RAY CHEST ONE VIEW, PORTABLE ([id number]) IMPRESSION: No acute cardiopulmonary disease. Dictated by: Vj Eaton M.D. on 05/02/2017 at 12:08 Approved by: Vj Eaton M.D. on 05/02/2017 at 12:09 Date of Service: 05/02/17 1157 PROCEDURE: CT BRAIN WITHOUT CONTRAST ([id number]) IMPRESSION: 1. No acute intracranial process. 2. Moderate to severe atrophy and chronic microvascular ischemic changes. Dictated by: Kay Velez M.D. on 05/02/2017 at 13:22 Approved by: Kay Velez M.D. on 05/02/2017 at 13:23 Assessment & Plan 86 year-old female with history of advanced dementia since CVA episode in 2014, hypertension, paroxysmal A-fib (on Coumadin) presents with complaint of left wrist and left hand pain and swelling. # Acute left wrist/hand cellulitis. Present on admission - Other differential includes possible acute gout or pseudogout (although uric acid level is low) and seems to be improving on current Abx - Appreciate ID and Ortho consults. Will followup with recommendations - Continue with Ancef - MRSA PCR negative - Followup ASO titer. 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 Currently in sinus rhythm - Continue with home dose Atenolol # Chronic anticoagulation with Coumadin with INR subtherapeutic on admission. - Continue with Warfarin (dose per Pharmacy) - Followup daily INR # History of hypertension. Poorly controlled - Continue with home dose Losartan - Consider adding additional meds # Hypothyroidism - Continue with home dose Synthroid # History of MGUS. - Appears stable - Further followup as outpatient # Mildly elevated lactic acid, acute and present on admission - Followup after IV hydration over night # Hypercalcemia. Chronic and stable - Followup Dispo: 2-3 days GI Prophylaxis: Proton Pump Inhibitor VTE Prophylaxis: Sub-Q Heparin (Unfractionated) VTE Mechanical Devices: Intermittant Pneumatic CD Resuscitation Status: Limited Interventions (OK to resuscitate but do NOT INTUBATE. Discussed and verified with her (DPOA)) Jonathan Colin May 04, 2017 16:51
--- NOTE | 2017-05-04 18:32 | NUR ---
Transfer of care This RN resumed care at 1730. Pt resting with eyes closed, became awake with RN in room. Tolerating IV abx well. Daughter at bedside. L wrist appears improved from . Less red, swelling within outlined boundaries. BP continuous to be high all day. MD notified. Waiting for meds, if need be. Bed in low position, 3 rails up, call light in reach. Will continue to monitor.
[2017-05-04] MEDS ORDERED: Labetalol 5 mg/mL 4 mL Inj IVPUSH PRN (18:50)
[2017-05-05] VITALS (10 sets, daily range): BP systolic 138–189; BP diastolic 71–94; PULSE 57–72; RESP 16–18; O2SAT 96–99
[2017-05-05] MEDS: CeFAZolin Inj 2 GM in IV Premix 1 EACH IV SCH ×3 (02:22→17:26)
[2017-05-05 05:46] LABS: Mean Corpuscular Hemoglobin 26.1 pg (27.0-35.0); Mean Corpuscular Volume 82.8 fL (81-100)
[2017-05-05 06:11] LABS: INR 1.78 ratio
--- NOTE | 2017-05-05 06:19 | NUR ---
Full night of rest Pt was quite calm at beginning of shift and went to sleep with out any lorazepam. Pt has been asleep almost all shift and wakes easily with care provision and falls back asleep equally as easily.
--- NOTE | 2017-05-05 07:51 | PCM.PHAPRO ---
Progress warfarin dosing Date May 03May 04May 05 INR 1.83 2.20 2.32 1.78 INR change 0.37 0.12 -0.54 Warf Dose 2.5mg 2.5mg 2.5 5 Hector Bain Pharm.D May 05, 2017 07:51
--- NOTE | 2017-05-05 12:08 | NUR ---
Pain Patient hand complaints of pain to left hand and scored a 4/10 pain level using the FELDT pain score. Patient administered 650mg Tylenol for pain which was effective. Patient hand is less swollen today.
--- NOTE | 2017-05-05 13:02 | PROG NOTE ---
[address] [address] PROGRESS NOTE PATIENT: JAVAN DICKEY : 1930 MR#: [id number] ADMIT: 05/02/2017 JOB ID: [id number] DATE: 05/05/2017 SUBJECTIVE: Patient seen and examined. Doing well. States that her hand is feeling better today. OBJECTIVE: Blood pressure 138/71, pulse rate 64, respirations 18, temperature 36.4. She is alert and cooperative, in no acute distress. Left hand has diminished swelling and redness, with minimal tenderness at this point. Her finger range of motion has improved and she is able to close a loose fist. Her wrist continues to have some stiffness and limitations with supination. I do not appreciate a wrist fusion. ASSESSMENT: Resolving left wrist pseudogout/cellulitis. PLAN: Continue medical management. Orthopedics will sign off for now. Please feel free to re-consult if you would like further input or assistance.
--- NOTE | 2017-05-05 13:11 | NUR ---
Evaluation completed. Please go to "Notes" then click on "Assessments and Notes" (bottom left corner of screen). Then select appropriate discipline tab on top of screen.
--- NOTE | 2017-05-05 15:05 | NUR ---
Social Work-readiness for discharge: Data:EMR Reviewed. Pt is on day 3 of hospitalization for cellulitis per H&P. Pt is not medically stable anticipate 1-2 more days. PT worked with pt and are recommending SNF placement. order received for SNF. AILIN spoke with pt's daughter Ivonne at bedside, SW role explained. SW provided SNF choice list. Ivonne feels like this would be good for her mom, but states that SW will need to speak with pt's Aamir. AILIN placed a call to Aamir and explained recommendation of SNF. Aamir is agreeable and would like referrals sent to [facility]. Aamir will speak with family and would like SW to check back in tomorrow regarding top choice. AILIN provided access in stickapps and faxed PASRR and facesheet to both [facility]. Paperwork in the chart. SW will continue to follow. Assessment:Pt to benefit from SNF. Plan: Referrals have been made to [facility]. Paperwork in the chart. SW will continue to follow. NOA Dempsey
--- NOTE | 2017-05-05 15:11 | NUR ---
SNF choice list provided. NOA Dempsey
--- NOTE | 2017-05-05 16:07 | PCM.PNMED ---
Subjective Date of Service May 05, 2017 Subjective Denies any new issues/complaints Exam Vital Signs Vital Sign - Last Date Time Temp Pulse Resp B/P Pulse Ox O2 Delivery O2 Flow Rate FiO2 05/05/17 12:54 36.7 57 18 175/72 98 Room Air Intake and Output 05/04/17 05/04/17 05/05/17 Cumulative From/Thru 15:00 23:00 07:00 05/02/17 11:35 - 05/05/17 06:12 Intake Total 852 ml 479 ml 2945 ml Output Total 200 ml 500 ml Balance 652 ml 479 ml 2445 ml Intake Oral 720 ml 250 ml 1940 ml IV Total 132 ml 229 ml 1005 ml Output Urine Total 200 ml 500 ml # Voids 2 1 9 # Bowel Movements 0 0 0 Exam General: Alert, Cooperative, No Acute Distress, Other (disoriented x 3) Head: Normal Eyes: Scleral Anicteric Nose: Mucous Membr Moist/[place] Mouth: Mucous Membr Moist/[place] Neck: Supple Chest & Lungs: Chest Wall Normal, Clear to auscultation bilat Cardiovascular: Regular Rate/Rhythm Abdomen: Non-tender, Non-distended, Normoactive bowel tones, Soft Extremities: No cyanosis/clubbing/edema bilat Skin: Other (erythema and swelling of the back of left hand and wrist much improved) Neurological: Grossly Neurologically Intact, Normal Speech, Strength Normal 4/ 4 ext IVs and Medications Medications Reviewed: Medications were reviewed in detail Lab and Diagnostics Result Diagram: 05/05/17 0537 05/03/17 0755 X-Rays, CTs and MRIs Date of Service: 05/02/17 1157 PROCEDURE: X-RAY LEFT WRIST COMPLETE, MINIMUM THREE VIEWS ([id number]) IMPRESSION: 1. No acute bony injuries of the left wrist. 2. Triangular fibrocartilage region chondrocalcinosis, consistent with CPPD deposition disease. 3. Mild first carpal metacarpal joint degeneration. Dictated by: Vj Eaton M.D. on 05/02/2017 at 12:03 Approved by: Vj Eaton M.D. on 05/02/2017 at 12:05 Date of Service: 05/02/17 1157 PROCEDURE: X-RAY LEFT ELBOW, TWO VIEWS ([id number]) IMPRESSION: 1. No acute bony injuries of the left elbow. 2. Scattered soft tissue calcification around the left elbow, possibly dystrophic from remote traumatic insult. Dictated by: Vj Eaton M.D. on 05/02/2017 at 12:06 Approved by: Vj Eaton M.D. on 05/02/2017 at 12:07 Date of Service: 05/02/17 1157 PROCEDURE: X-RAY CHEST ONE VIEW, PORTABLE ([id number]) IMPRESSION: No acute cardiopulmonary disease. Dictated by: Vj Eaton M.D. on 05/02/2017 at 12:08 Approved by: Vj Eaton M.D. on 05/02/2017 at 12:09 Date of Service: 05/02/17 1157 PROCEDURE: CT BRAIN WITHOUT CONTRAST ([id number]) IMPRESSION: 1. No acute intracranial process. 2. Moderate to severe atrophy and chronic microvascular ischemic changes. Dictated by: Kay Velez M.D. on 05/02/2017 at 13:22 Approved by: Kay Velez M.D. on 05/02/2017 at 13:23 Assessment & Plan 86 year-old female with history of advanced dementia since CVA episode in 2014, hypertension, paroxysmal A-fib (on Coumadin) presents with complaint of left wrist and left hand pain and swelling. # Acute left wrist/hand cellulitis. Present on admission. Improving - Other differential includes possible acute gout or pseudogout (although uric acid level is low) and seems to be improving on current Abx - Appreciate ID and Ortho consults. Will followup with recommendations - Continue with Ancef - MRSA PCR negative - Followup ASO titer. 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 Currently in sinus rhythm - Continue with home dose Atenolol # Chronic anticoagulation with Coumadin with INR subtherapeutic on admission. - Continue with Warfarin (dose per Pharmacy) - Followup daily INR # History of hypertension. Poorly controlled - Continue with home dose Losartan - Consider adding additional meds - IV Labetalol prn # Hypothyroidism - Continue with home dose Synthroid # History of MGUS. - Appears stable - Further followup as outpatient # Mildly elevated lactic acid, acute and present on admission - Resolved after IV hydration Dispo: PT recommending SNF. ? home vs SNF in 1-2 days GI Prophylaxis: Proton Pump Inhibitor VTE Prophylaxis: Sub-Q Heparin (Unfractionated) VTE Mechanical Devices: Intermittant Pneumatic CD Resuscitation Status: Limited Interventions (OK to resuscitate but do NOT INTUBATE. Discussed and verified with her (DPOA)) Jonathan Colin May 05, 2017 16:07 Jonathan Colin May 05, 2017 16:07
[2017-05-05] MEDS ORDERED: Labetalol 5 mg/mL 4 mL Inj IVPUSH ONE (17:20)
--- NOTE | 2017-05-05 18:29 | NUR ---
HTN Patient had BP of 189/93. notified and ordered Labetalol 10mg IV. Medication administered. BP rechecked 20min later and was 159/72 with pulse at 65.
[2017-05-06 01:16] VITALS: BP 190/85; PULSE 68; RESP 16; O2SAT 99
[2017-05-06] MEDS: CeFAZolin Inj 2 GM in IV Premix 1 EACH IV SCH ×2 (01:42→09:16)
[2017-05-06 05:42] LABS: BASOPHILS % (AUTO) 0.9 % (0-3); MONOCYTES % (AUTO) 11.4 % (4-12); Mean Corpuscular Hemoglobin 26.1 pg (27.0-35.0); Mean Corpuscular Volume 82.3 fL (81-100); NEUTROPHILS % (AUTO) 60.9 % (40-74); Platelet Count 303 bil/L (150-400)
[2017-05-06 06:03] LABS: INR 2.07 ratio
--- NOTE | 2017-05-06 07:08 | PCM.PHAPRO ---
Progress warfarin dosing -May 05May 06 2.32 1.78 2.07 0.12 -0.54 0.29 2.5 5 4 Hector Bain Pharm.D May 06, 2017 07:08
[2017-05-06 08:45] VITALS: BP 144/79; PULSE 62; RESP 16; O2SAT 97
--- NOTE | 2017-05-06 09:55 | NUR ---
[facility] can accept with Dr. Brandt to follow. Rona Cruz MSW
[2017-05-06 10:10] VITALS: PULSE 66
--- NOTE | 2017-05-06 11:17 | NUR ---
[facility] can accept with Dr. Díaz to follow. NOA Dempsey
[2017-05-06 13:02] VITALS: BP 141/78; PULSE 61; RESP 16; O2SAT 97
--- NOTE | 2017-05-06 14:59 | NUR ---
Social Work-readiness for discharge: Data:EMR Reviewed. Pt is on day 4 of hospitalization for cellulitis per H&P. Pt is likely medically stable later today or tomorrow. SW followed up with family and family toured SNF's. Family is now interested in seeing PT today and having pt return home. SW spoke with PT who has seen pt and now they are recommending home with services. SW received order for MD for HH services. SW spoke with family again, HH choice list provided. Family would like to use [facility] if available soon, if not then they would like to use rotating calendar. SW called [facility] and they cannot see pt until Saturday, family would like pt seen sooner. SW referred to [facility] and made referral to [facility] for RN and PT. family updated. F2F to be completed by . SW will continue to follow. Assessment:Pt who would benefit from HH. Plan:Pt to discharge home when medically stable via POV. PT has cleared pt for home with HH. Referral made to [facility] for RN and PT. F2F to be completed by . SW will continue to follow. NOA Dempsey
--- NOTE | 2017-05-06 15:01 | PCM.DIMED ---
Discharge Instructions Date of Service May 06, 2017 Dates of Hospitalization May 02, 2017 at 14:50 Discharge Diagnosis Discharge Diagnosis # Acute left wrist/hand cellulitis. Present on admission. Improved # TIA one day prior to presentation # History of Paroxysmal A-fib. Currently in sinus rhythm # Chronic anticoagulation with Coumadin with INR subtherapeutic on admission. # History of hypertension. Poorly controlled # Hypothyroidism # History of MGUS. # history of dementia Diet Discharge Diet: Low fat, Low Sodium Activity Discharge Activity: Limited until seen by PCP, Home Health Phyical Therapy Call your provider Call your provider for: Fever or Chills, Shortness of breath, Bleeding, Chest pain, Vomitting, Excessive diarrhea, Weakness (unilateral) Patient Instructions Patient Instructions You were hospitalized due to left wrist and hand cellulitis. Treated with IV antibiotics. Please continue Keflex for 5 more days. Please follow-up with PCP in 1 week. Continue physical therapy for range of motion of left wrist and gait training. Follow-up Provider: Lianne Espinoza MD Follow-up with PCP in: 1 week Ismael Fields MD May 06, 2017 15:01
[2017-05-06] MEDS ORDERED: CEPH-512 PO (15:02)
--- NOTE | 2017-05-06 15:20 | NUR ---
Social Work-discharge: Data:EMR reviewed. Pt is on day 4 of hospitalization for cellulitis. Pt is medically stable for discharge. PT has now cleared pt for home with HH Services. Pt to return home on Oral abx. SW updated pt and family of discharge and they are agreeable to plan. Family to provide care at home. SW informed [facility] of the discharge and provided them with F2F and orders for RN and PT. [facility] can see pt next day, family has been updated. Pt's family to provide transport home today. All updated and agreeable to plan. Assessment:pt who would benefit from HH. Plan:Pt to discharge home today via POV. F2F and orders provided to [facility] for RN and PT. Pt and family updated and agreeable to plan. NOA Dempsey
--- NOTE | 2017-05-06 15:36 | PCM.DC.MED ---
Discharge Summary Date of Service May 06, 2017 Dates of Hospitalization Date of Hospital Admission May 02, 2017 at 14:50 Date of Discharge: May 06, 2017 Providers: Admitting Physician: Jonathan Colin Primary Care Physician: Lianne Espinoza MD Attending Physician: Jonathan Colin Diagnosis at Time of Discharge Diagnosis at Time of Discharge # Acute left wrist/hand cellulitis. Present on admission. Improved # TIA one day prior to presentation # History of Paroxysmal A-fib. Currently in sinus rhythm # Chronic anticoagulation with Coumadin with INR subtherapeutic on admission. # History of hypertension. Poorly controlled # Hypothyroidism # History of MGUS. # history of dementia Consultations ID Dr. [facility] Procedures XRay, CTs & MRIs Date of Service: 05/02/171156 PROCEDURE: X-RAY LEFT WRIST COMPLETE, MINIMUM THREE VIEWS ([id number]) IMPRESSION: 1. No acute bony injuries of the left wrist. 2. Triangular fibrocartilage region chondrocalcinosis, consistent with CPPD deposition disease. 3. Mild first carpal metacarpal joint degeneration. Dictated by: Vj aEton M.D. on 05/02/2017 at 12:03 Approved by: Vj Eaton M.D. on 05/02/2017 at 12:05 Date of Service: 05/02/17 8197 PROCEDURE: X-RAY LEFT ELBOW, TWO VIEWS ([id number]) IMPRESSION: 1. No acute bony injuries of the left elbow. 2. Scattered soft tissue calcification around the left elbow, possibly dystrophic from remote traumatic insult. Dictated by: Vj Eaton M.D. on 05/02/2017 at 12:06 Approved by: Vj Eaton M.D. on 05/02/2017 at 12:07 Date of Service: 05/02/17 070 PROCEDURE: X-RAY CHEST ONE VIEW, PORTABLE ([id number]) IMPRESSION: No acute cardiopulmonary disease. Dictated by: Vj Eaton M.D. on 05/02/2017 at 12:08 Approved by: Vj Eaton M.D. on 05/02/2017 at 12:09 Date of Service: 05/02/17 1157 PROCEDURE: CT BRAIN WITHOUT CONTRAST ([id number]) IMPRESSION: 1. No acute intracranial process. 2. Moderate to severe atrophy and chronic microvascular ischemic changes. Dictated by: Kay Velez M.D. on 05/02/2017 at 13:22 Approved by: Kay Velez M.D. on 05/02/2017 at 13:23 Brief History per HPI 86 year-old female with history of advanced dementia since CVA episode in 2014, hypertension, paroxysmal A-fib (on Coumadin) presents with complaint of left wrist and left hand pain and swelling, onset yesterday morning. Patient has advanced demential and unable to provide any meaningful history. According to her daughter and grand-daughter who are at bedside yesterday patient was noted to be leaning to the left when trying to walk or when in the chair. She may also have had some transient slurring of her speech yesterday. Today, the pt is not leaning one way and her speech has also reportedly improved. The family brought her in today to address both her symptoms yesterday and the severe pain , swelling and erythema in the left wrist due to unknown cause. Patient does report some pain in her left wrist but otherwise denies any other issues/complaints. There is no reported fever, chills, nausea, vomiting. In the ED she received a dose of Zosyn. Vanco was also ordered but she was noted to have significant erythema at the IV site when Vanco was being infused and so it has been stopped. Hospital Course 86 year-old female with history of advanced dementia since CVA episode in 2014, hypertension, paroxysmal A-fib (on Coumadin) presents with complaint of left wrist and left hand pain and swelling. # Acute left wrist/hand cellulitis. Present on admission. Improving - Other differential includes possible acute gout or pseudogout (although uric acid level is low) and seems to be improving on current Abx - Appreciate ID and Ortho consults. Will followup with recommendations -Treated with Ancef. 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 Currently in sinus rhythm - Continue with home dose Atenolol # Chronic anticoagulation with Coumadin with INR subtherapeutic on admission. - Continue with Warfarin # History of hypertension. Poorly controlled - Continue with home dose Losartan # Hypothyroidism - Continue with home dose Synthroid # History of MGUS. - Appears stable - Further followup as outpatient # Mildly elevated lactic acid, acute and present on admission - Resolved after IV hydration Dispo: Discharged home with home health for physical therapy 3 times per week, to improve left wrist range of motion and gait training. RN for follow-up of cellulitis, reinforce medication/antibiotic compliance and home environment assessment Exam Vital Signs (Last) Date Time Temp Pulse Resp B/P Pulse Ox O2 Delivery O2 Flow Rate FiO2 05/06/17 13:02 36.5 61 16 141/78 97 Room Air Exam General: Alert, Cooperative, No Acute Distress, Other (disoriented x 3) Head: Normal Eyes: Scleral Anicteric Nose: Mucous Membr Moist/[place] Mouth: Mucous Membr Moist/[place] Neck: Supple Chest & Lungs: Chest Wall Normal, Clear to auscultation bilat Cardiovascular: Regular Rate/Rhythm Abdomen: Non-tender, Non-distended, Normoactive bowel tones, Soft Extremities: No cyanosis/clubbing/edema bilat Skin: Other (erythema and swelling of the back of left hand and wrist much improved) Neurological: Grossly Neurologically Intact, Normal Speech, Strength Normal / ext Test 05/02/17 14:00 05/03/17 07:55 05/04/17 03:30 05/06/17 05:27 Urine Color Yellow (YELLOW) Urine Appearance Hazy (CLEAR,HAZY) Urine pH 6.0 (5.0-8.0) Urine Specific [place] 1.020 (1.003-1.035) Urine Protein Tracemg/dL (NEG,TRACE) Urine Glucose (UA) Negativemg/dL (NEGATIVE) Urine Ketones Negativemg/dL (NEGATIVE) Urine Occult Blood Moderate (NEGATIVE) Urine Nitrite Negative (NEGATIVE) Urine Bilirubin Negative (NEGATIVE) Urine Urobilinogen Normalmg/dL (NORMAL) Urine Leukocyte Esterase Trace (NEGATIVE) Urine RBC 3-10/hpf (0-2) Urine WBC 0-5/hpf (0-5) Urine Epithelial Cells Occasional/hpf (NONE-MOD) Urine Crystals None seen (NONE SEEN) Urine Bacteria Moderate/hpf (NONE-FEW) Urine Hyaline Casts None/lpf (NONE) Urine Granular Casts None seen (NONE SEEN) Urine Waxy Casts None seen (NONE SEEN) Urine Red Blood Cell Casts None seen (NONE SEEN) Urine White Blood Cell Casts None seen (NONE SEEN) Urine Mucus Present (None Seen) Urine Trichomonas None seen (NONE SEEN) Urine Yeast None (NONE SEEN) Urinalysis Comment None Urine Culture Reflexed Indicated Lactic Acid Level 1.0mmol/L (0.4-2.0) Uric Acid 1.8mg/dL (2.6-7.2) White Blood Count 7.4th/mm3 (3.8-10.1) Red Blood Count 4.17mil/mm3 (3.90-5.20) Hemoglobin 10.9g/dL (12.0-15.6) Hematocrit 34.3% (35.0-46.0) Mean Corpuscular Volume 82.3fL (81-100) Mean Corpuscular Hemoglobin 26.1pg (27.0-35.0) Mean Corpuscular Hemoglobin Concent 31.8% (32.0-37.0) Red Cell Distribution Width 15.6% (12.3-15.4) Platelet Count 303bil/L (150-400) Neutrophils (%) (Auto) 60.9% (40-74) Lymphocytes (%) (Auto) 14.5% (14-46) Monocytes (%) (Auto) 11.4% (4-12) Eosinophils (%) (Auto) 12.0% (0-5) Basophils (%) (Auto) 0.9% (0-3) Prothrombin Time 22.5sec (8.1-12.5) Prothromb Time International Ratio 2.07ratio Sodium Level 137mEq/L (134-144) Potassium Level 4.2mEq/L (3.5-5.2) Chloride Level 103mEq/L (97-108) Carbon Dioxide Level 20mmol/L (18-29) Blood Urea Nitrogen 14mg/dL (8-27) Creatinine 0.79mg/dL (0.57-1.00) Estimat Glomerular Filtration Rate 99mL/min (>59) Glucose Level 94mg/dL (60-99) Calcium Level 9.7mg/dL (8.5-10.1) Magnesium Level 2.0mg/dL (1.6-2.6) Total Bilirubin 0.3mg/dL (0.0-1.2) Aspartate Amino Transf (AST/SGOT) 19U/L (0-50) Alanine Aminotransferase (ALT/SGPT) 8U/L (0-32) Alkaline Phosphatase 88U/L (25-165) Total Protein 5.8g/dL (6.4-8.4) Albumin 2.9g/dL (3.4-5.0) Procalcitonin 0.13ng/mL (0.00-0.08) Discharge Medications Discharge Medications Atenolol (Atenolol) 25 Mg Tablet 25 MG PO QAM (Reported) Atorvastatin (Lipitor) 20 Mg Tablet 20 MG PO HS Prescribed by: CHUY COOPER MD Cephalexin (Keflex) 500 Mg Capsule 500 MG PO TID Prescribed by: MERCEDES ALCANTAR MD Fluoxetine (Fluoxetine) 10 Mg Tablet 10 MG PO DAILY (Reported) Levothyroxine (Levothyroxine) 25 Mcg Tablet 25 MCG PO DAILY (Reported) Losartan Potassium (Losartan Potassium) 50 Mg Tablet 50 MG PO BID (Reported) Warfarin Sodium (Coumadin) 5 Mg Tablet 5 MG PO sat,sat,,sun (Reported) Warfarin Sodium (Warfarin Sodium) 2.5 Mg Tablet 2.5 MG PO sat,,sat (Reported) As needed Lorazepam (Lorazepam) 0.5 Mg Tablet 0.5-1 MG PO HS PRN PRN For Anxiety or Agitation (Reported) Followup Plan Disposition: Home home health Discharge Diet: Low fat, Low Sodium Discharge Activity: Limited until seen by PCP, Home Health Phyical Therapy Patient Instructions You were hospitalized due to left wrist and hand cellulitis. Treated with IV antibiotics. Please continue Keflex for 5 more days. Please follow-up with PCP in 1 week. Continue physical therapy for range of motion of left wrist and gait training. Follow-up Provider: Lianne Espinoza MD Follow-up with PCP in: 1 week Time spent 35 minutes copies to: Lianne Espinoza MD, Melaku MD May 06, 2017 15:36
--- NOTE | 2017-05-06 16:38 | NUR ---
Discharge Reviewed discharge paperwork, care notes and medications with pt and family - disclaimer signed. IV DCd intact, tele removed, all belongings with pt. Pt denies pain and SOB. Escorted out of hospital in WC with daughter in law, driving pt home in truck.
--- NOTE | 2017-05-06 20:33 | PROG NOTE ---
[address] [address] PROGRESS NOTE PATIENT: JAVAN DICKEY : 1930 MR#: [id number] ADMIT: 05/02/2017 JOB ID: [id number] DATE: 05/06/2017 REASON FOR FOLLOWUP: Left wrist and forearm cellulitis. INTERVAL HISTORY: The patient reports that over the past couple of days her wrist has basically returned to normal. It is not warm, it is not tender and she now has a full range of motion. Over the weekend, the patient was seen by Orthopedics and they did not feel she had a septic wrist nor do they see any value for tapping it. They felt the diagnosis was cellulitis, pseudogout or a combination of both. PHYSICAL EXAMINATION: Reveals an afebrile woman in no acute distress. Temp 36.5, pulse 61, respiratory rate 16, blood pressure 141/78, saturating 97% on room air. She is in no distress. Lungs are quite clear. Abdomen benign. The left wrist is now nearly normal, is still a bit swollen as compared to the right wrist, but there is now full range of motion without any tenderness. [employer] strength has returned to something approaching the right side and there is no longer any epitrochlear tenderness. LABORATORIES: Include an ASO titer which is still, unfortunately, pending. The white count 7400, platelet count 300,000. There is a normal diff on that white count. Creatinine 0.79. Micro studies include negative blood cultures, negative MRSA screen and no additional labs are available. IMPRESSION: It seems most likely that this patient has suffered a streptococcal infection of the wrist and distal forearm, as it certainly had that appearance though was never as intensely red as one might have expected is the normal pattern. The tender epitrochlear node seen late last week also would go along with the streptococcal etiology. There is no evidence for MRSA though MSSA cannot be excluded. RECOMMENDATIONS: 1. I think the patient could be discharged today on Keflex 500 q.i.d. to be taken for one more week. 2. I understand there is some discussion about whether the patient can make it home safely or whether she needs a brief stay in rehab but, in any event, I would prescribe the same antibiotics. 3. This case discussed with Dr. Fields. I will be signing off today.
== END 2017-05-06 16:32 | disposition home or self-care (01) | DRG 603 ==
LOC: SED 11:21 → MPC 14:50
PROVIDERS: ADMIT Internal Medicine; ATTEND Internal Medicine
DX: L03.114 Cellulitis of left upper limb (principal); D47.2 Monoclonal gammopathy; Z86.73 Personal history of transient ischemic attack (TIA), and cerebral infarction without residual deficits; Z79.01 Long term (current) use of anticoagulants; R79.1 Abnormal coagulation profile; Z95.0 Presence of cardiac pacemaker; E03.9 Hypothyroidism, unspecified; I10 Essential (primary) hypertension

== ENCOUNTER 2017-06-22 13:01 | Emergency (ER) | payer MEDICARE, OTHER ==
[~2017-06-22] VITALS: Ht 157.5 cm; Wt 62.7 kg
[~2017-06-22 13:01] MED LIST changes: +CEPH-512 PO; -FAMO20T PO
[2017-06-22 13:06] VITALS: BP 164/92; PULSE 84; RESP 18; O2SAT 98
--- NOTE | 2017-06-22 15:31 | ED.REPORT ---
HPI-Rash / Abscess Date of Service Jun 22, 2017 ED Provider: Orlando Hodge PA-C Patient is a 86-year-old female with a history of a, dementia, hypertension, A. fib and anticoagulation, cellulitis presenting with a chief complaint of left wrist pain. Son reports a 2 day history of redness swelling, pain, reduced range of motion of the left wrist. Son states that she was hospitalized for similar condition roughly 6 weeks ago. He reports the condition resolved until 2 days ago. Denies trauma, fever, shaking chills, vomiting, abdominal pain, sweats. Review of records indicate that she was treated with Ancef and discharged with a prescription for Keflex. Nursing Notes Stated Complaint: LEFT ARM CELLULITIS Chief Complaint: Skin Rash/Abscess Nursing Notes Reviewed: Yes Allergies: Coded Allergies: vancomycin (Verified Allergy, Severe, Rash, 05/02/17) codeine (Verified Allergy, Mild, nausea, 05/02/17) Scheduled Atenolol (Atenolol) 25 Mg Tablet 25 MG PO QAM Atorvastatin (Lipitor) 20 Mg Tablet 20 MG PO HS Cephalexin (Keflex) 500 Mg Capsule 500 MG PO TID Cephalexin (Cephalexin) 500 Mg Tablet 500 MG PO TID Fluoxetine (Fluoxetine) 10 Mg Tablet 10 MG PO DAILY Levothyroxine (Levothyroxine) 25 Mcg Tablet 25 MCG PO DAILY Losartan Potassium (Losartan Potassium) 50 Mg Tablet 50 MG PO BID Warfarin Sodium (Coumadin) 5 Mg Tablet 5 MG PO sat,sat,fr,sun Warfarin Sodium (Warfarin Sodium) 2.5 Mg Tablet 2.5 MG PO sat,,sat Scheduled PRN Lorazepam (Lorazepam) 0.5 Mg Tablet 0.5-1 MG PO HS PRN PRN For Anxiety or Agitation General Time Seen by MD: 15:10 Chief Complaint Red area Past Medical History Past Medical History 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 Recent small/mod pericardial effusion without evidence of tamponade Paroxysmal afib on coumadin back pain arthritis Mild cognitive impairment Reports: Hyperlipidemia, Hypertension Past Surgical History knee replacement back surgery Reports: Appendectomy, Hysterectomy Reports: Pacemaker insertion Smoking History Never Smoker Social History Alcohol Use: Denies alcohol use Drug Use: Denies drug use Other Social History: Ambulatory Status Independent Review of Systems Review of Systems Note: Negative unless stated otherwise in history of present illness Physical Exam General: Well appearing, well developed, well nourished, no acute distress. Left wrist/hand: Notable redness swelling and warmth on the radial aspect of the wrist. Extremely reduced range of motion in the wrist, which improves with distraction of the patient.. Hand is otherwise normal to inspection and nontender. Radial pulse 2+. Head: Atraumatic, normocephalic. Eyes: No scleral icterus or injection. No discharge. Vision grossly intact. ENT: Voice clear, hearing grossly intact. Respiratory: Regular rate and rhythm. Breath sounds present, clear to auscultation and equal bilaterally. No respiratory distress. No increased work of breathing, speaks in complete sentences. Cardiovascular: Regular rate and rhythm, without murmur, gallop or rub. No pedal edema. Skin: Warm and dry. Neurological: Grossly nonfocal. Psychological: Alert and oriented but confused. Behavior appropriate. Initial Vital Signs Vital Signs (First) Date Time Temp Pulse Resp B/P Pulse Ox O2 Delivery O2 Flow Rate FiO2 06/22/17 13:06 36.5 84 18 164/92 98 Room Air Elevated blood pressure Interpretation & Diagnostics Lab Results Interpretation Result Diagram: 06/22/17 1547 06/22/17 1547 Test 06/22/17 15:47 06/22/17 15:48 White Blood Count 9.5th/mm3 (3.8-10.1) Red Blood Count 4.65mil/mm3 (3.90-5.20) Hemoglobin 12.2g/dL (12.0-15.6) Hematocrit 38.1% (35.0-46.0) Mean Corpuscular Volume 81.9fL (81-100) Mean Corpuscular Hemoglobin 26.2pg (27.0-35.0) Mean Corpuscular Hemoglobin Concent 32.0% (32.0-37.0) Red Cell Distribution Width 15.7% (12.3-15.4) Platelet Count 305bil/L (150-400) Neutrophils (%) (Auto) 70.1% (40-74) Lymphocytes (%) (Auto) 10.3% (14-46) Monocytes (%) (Auto) 15.4% (4-12) Eosinophils (%) (Auto) 3.1% (0-5) Basophils (%) (Auto) 0.8% (0-3) Sodium Level 135mEq/L (134-144) Potassium Level 4.1mEq/L (3.5-5.2) Chloride Level 98mEq/L (97-108) Carbon Dioxide Level 23mmol/L (18-29) Blood Urea Nitrogen 15mg/dL (8-27) Creatinine 0.78mg/dL (0.57-1.00) Estimat Glomerular Filtration Rate 100mL/min (>59) Glucose Level 117mg/dL (60-99) Uric Acid 2.5mg/dL (2.6-7.2) Calcium Level 10.0mg/dL (8.5-10.1) Total Bilirubin 0.5mg/dL (0.0-1.2) Aspartate Amino Transf (AST/SGOT) 15U/L (0-50) Alanine Aminotransferase (ALT/SGPT) 12U/L (0-32) Alkaline Phosphatase 84U/L (25-165) Total Protein 7.1g/dL (6.4-8.4) Albumin 3.7g/dL (3.4-5.0) Hold Diaz Top Tube Received (Received) X-Ray Interpretation Xray Interpretation: PROCEDURE: X-RAY LEFT WRIST COMPLETE, MINIMUM THREE VIEWS ([id number]) INDICATIONS: left wrist pain IMPRESSION: Stable degenerative change, stable 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 No acute disease. X-Ray Ordered: Wrist left Re-Eval/Medical Decision Med Decision/Clinical Course 86 year old female with a recent history of hospitalization for cellulitis presents with returned redness and swelling her left wrist first noticed 2 days ago. Also complains of pain reduced range of motion. Denies other symptoms. Physical examination reveals redness on the radial aspect of the left wrist, significantly reduced range of motion in the wrist. Otherwise benign exam, vitals normal except for mildly elevated blood pressure. Discussed the case with Dr. Mar, who needs with and examined the patient. X-ray, CBC and CMP are ordered, all of which are unremarkable. Discussed the case with Dr. Pardo who agrees with the plan to discharge patient on Bactrim follow-up with primary care. She advises a uric acid level to potentially rule in gout. Ordered and low at 2.5. His chest Bactrim is noted to interact with her losartan and Keflex as substituted after discussion with Dr. Mar. Advise regarding primary care follow-up and [facility] return precautions. Patient and her caregiver verbalized understanding of and consent to the plan. Consultation : Referral / Consult Name: Sen Pardo MD Consulted With: Orthopedic Call Returned at: 17:15 Note: Discussed the case with Dr. Pardo, who agrees with plan to discharge patient with Bactrim DS, follow-up early next week with primary care. She feels septic joint is unlikely, though does suggest a uric acid level to possibly confirm gout. Discharge & Departure Impression: Primary Impression: Cellulitis Site of cellulitis: extremity Site of cellulitis of extremity: upper extremity Laterality: left Qualified Code: L03.114 - Cellulitis of left upper limb Disposition: Home Discharge Condition All VS Reviewed: Yes Condition: Stable Patient Instructions: Cellulitis (ED) Additional Instructions: Evaluation for possible cellulitis in the emergency department includes interview, physical examination, x-ray, blood work, review of records, and consultation with orthopedic surgeon. At this point we believe this is most likely a relatively mild case of cellulitis, and I reassured against more severe condition such as an infection in the joint. We believe that you are stable and safe to go home. I have written a prescription for Keflex 500 mg to be taken 3 times a day for 7 days.. I recommend [id number] acetaminophen (Tylenol) to treat pain. Please follow up with your primary care provider early next week to assess your progress. Return to emergency department for new or worsening symptoms including increasing redness, swelling, pain, feeling ill, racing heart, sweating, fever. Referrals: Lianne Espinoza MD (PCP) EDSupervising Provider for APC: Gregorio Mar MD Attending Statement I discussed patient with AMANDEEP Hodge. I evaluated the patient independently and agree with plan as above. In brief 86-year-old female with history of left wrist cellulitis presenting with recurrent erythema of her left wrist. There is a very mild cellulitis. She has minimal tenderness on range of motion. She is neurovascular intact. There is no evidence of tenosynovitis. There is no evidence of sepsis. Patient case was discussed with orthopedics who recommended Keflex no need for arthrocentesis at this time. She recommended uric acid level. Patient was discharged with Keflex post follow up with primary doctor in 2 days return precautions given. copies to: Lianne Espinoza MD, Seth PA-C Jun 22, 2017 15:31 Gregorio Mar MD Jun 22, 2017 18:41
[2017-06-22 16:14] LABS: BASOPHILS % (AUTO) 0.8 % (0-3); EOSINOPHILS % (AUTO) 3.1 % (0-5); MONOCYTES % (AUTO) 15.4 % (4-12); Mean Corpuscular Hemoglobin 26.2 pg (27.0-35.0); Mean Corpuscular Volume 81.9 fL (81-100); NEUTROPHILS % (AUTO) 70.1 % (40-74); Platelet Count 305 bil/L (150-400)
--- NOTE | 2017-06-22 16:29 | DRSVH ---
PROCEDURE: X-RAY LEFT WRIST COMPLETE, MINIMUM THREE VIEWS ([id number]) INDICATIONS: left wrist pain TECHNIQUE: 4 views of the wrist were acquired. COMPARISON: None. FINDINGS: Bones: No fractures or dislocations. No suspicious bony lesions. Moderate degenerative osteoarthri tis at the first carpal-metacarpal articulation and also the radiocarpal joint, with additional lesse r degenerative changes more medially. Scaphoid view: No trauma to the scaphoid is found. Soft tissues: No change in chondrocalcinosis soft tissue calcifications at and adjacent to the trian gular fibrocartilage borders. IMPRESSION: Stable degenerative change, stable chondrocalcinosis involving the borders of the triang le fibrocartilage. No acute disease. Dictated by: Royal Cohen M.D. on 06/22/2017 at 16:26 Approved by: Royal Cohen M.D. on 06/22/2017 at 16:28
[2017-06-22] MEDS ORDERED: CEPH500T PO ×2 (17:52→18:01)
[2017-06-22 18:07] VITALS: BP 132/72; PULSE 63; RESP 16; O2SAT 98
== END 2017-06-22 18:08 | disposition home or self-care (01) ==
LOC: SED 13:01
DX: L03.114 Cellulitis of left upper limb (principal); F03.90 Unspecified dementia, unspecified severity, without behavioral disturbance, psychotic disturbance, mood disturbance, and anxiety; I10 Essential (primary) hypertension; I48.91 Unspecified atrial fibrillation; Z79.01 Long term (current) use of anticoagulants; E78.5 Hyperlipidemia, unspecified; Z95.0 Presence of cardiac pacemaker; Z88.1 Allergy status to other antibiotic agents; Z88.5 Allergy status to narcotic agent